=== PATIENT | male | born 2000 | race Two or more races ===

== ENCOUNTER 2021-12-28 13:10 | Inpatient (IN) | payer OTHER ==
[~2021-12-28] VITALS: Ht 177.8 cm; Wt 131.4 kg
[2021-12-28 14:46] LABS: Basophils # (auto) 0 10 ^3/uL (0-0.2); Basophils % (auto) 0.1 % (0.0-2.0); Eosinophils # (auto) 0 10 ^3/uL (0-0.8); Eosinophils % (auto) 0.1 % (0.0-7.0); Hemoglobin 13.7 g/dL (13.5-17.5); Lymphocytes # (auto) 1.4 10 ^3/uL (0.4-5.4); Lymphocytes % (auto) 6.5 % (10.0-50.0); Mean Corpuscular Hemoglobin 27.8 pg (28.0-32.0); Mean Corpuscular Hgb Conc. 33.4 g/dL (32.0-36.0); Mean Corpuscular Volume 83.3 fL (80.0-100.0); Monocytes # (auto) 2.1 10 ^3/uL (0-1.3); Monocytes % (auto) 9.6 % (0.0-12.0); Neutrophils # (auto) 18.3 10 ^3/uL (1.6-8.6); Neutrophils % (auto) 83.7 % (37.0-80.0); Red Blood Cells 4.92 10^6/uL (4.5-5.90); Red Cell Distribution Width 13.1 % (11.8-14.3); White Blood Cell 21.8 10^3/uL (4.4-10.8)
[2021-12-28 14:57] LABS: Albumin 3.8 g/dL (3.4-5.0); Calcium 8.6 mg/dL (8.5-10.1); Potassium 3.7 mmol/L (3.5-5.1)
[2021-12-28 15:02] LABS: BUN/Creatinine Ratio 9.9; Bilirubin, Total 0.7 mg/dL (0.2-1.0); Total Protein 7.6 g/dL (6.4-8.2)
[2021-12-28] MEDS ORDERED: SODIUM CHLORIDE 0.9% 1,000 ML IV ONE ×2 (17:00)
[2021-12-28] MEDS ORDERED: metroNIDAZOLE 500MG/100ML 100 ML IV ONE (17:00)
[2021-12-28] MEDS ORDERED: cefTRIAXone 1GM/50ML D5W 50 ML IV ONE (17:00)
[2021-12-28 17:21] LABS: Urine Bacteria NONE SEEN /hpf (None Seen); Urine Blood 1+ /uL (Negative); Urine Mucus FEW (None Seen); Urine Specific Gravity 1.026 (1.001-1.035); Urine WBC 1 /hpf (0 - 3)
[2021-12-28] MEDS ORDERED: ONDANSETRON HCL 4 MG/2 ML VIAL IV PRN (17:30)
[2021-12-28] MEDS ORDERED: MORPHINE SULFATE INJ 2 MG/ml SYRG IV PRN (17:30)
[2021-12-28 17:32] LABS: Alcohol, Urine < 3.0 mg/dL (0-10); Amphetamine Screen, Urine NEGATIVE (NEGATIVE); Barbiturate Scree,Urine NEGATIVE (NEGATIVE); Benzodiazephine Screen, Urine NEGATIVE (NEGATIVE); Cannabinoid Screen, Urine NEGATIVE (NEGATIVE); Cocaine Screen, Urine NEGATIVE (NEGATIVE); Opiate Scree,Urine NEGATIVE (NEGATIVE); Phencyclidine Screen, Urine NEGATIVE (NEGATIVE)
[2021-12-28] MEDS ORDERED: ACETAMINOPHEN 325 MG TAB PO ONE (19:45)
[2021-12-28] MEDS: metroNIDAZOLE 500MG/100ML 100 ML IV SCH (19:52)
[2021-12-28 22:25] VITALS: BP 115/67
[2021-12-29] MEDS: metroNIDAZOLE 500MG/100ML 100 ML IV SCH ×3 (01:29→20:42)
[2021-12-29] MEDS: SODIUM CHLORIDE 0.9% 1,000 ML IV SCH ×5 (01:50→20:43)
[2021-12-29] MEDS ORDERED: ACETAMINOPHEN 325 MG TAB PO ONE (02:45)
[2021-12-29 05:11] VITALS: BP 114/65
[2021-12-29 06:04] LABS: Basophils # (auto) 0.1 10 ^3/uL (0-0.2); Basophils % (auto) 0.3 % (0.0-2.0); Eosinophils # (auto) 0 10 ^3/uL (0-0.8); Eosinophils % (auto) 0.1 % (0.0-7.0); Hematocrit 38.3 % (41.0-53.0); Hemoglobin 12.9 g/dL (13.5-17.5); Lymphocytes # (auto) 2.1 10 ^3/uL (0.4-5.4); Lymphocytes % (auto) 11.6 % (10.0-50.0); Mean Corpuscular Hemoglobin 29.3 pg (28.0-32.0); Mean Corpuscular Hgb Conc. 33.7 g/dL (32.0-36.0); Mean Corpuscular Volume 87.1 fL (80.0-100.0); Monocytes # (auto) 2.2 10 ^3/uL (0-1.3); Monocytes % (auto) 12.1 % (0.0-12.0); Neutrophils # (auto) 13.7 10 ^3/uL (1.6-8.6); Neutrophils % (auto) 75.9 % (37.0-80.0); Nucleated Red Blood Cells % 0.1 %; Red Cell Distribution Width 13.5 % (11.8-14.3)
[2021-12-29 08:31] LABS: Potassium 3.7 mmol/L (3.5-5.1)
[2021-12-29 08:41] LABS: Albumin 3.3 g/dL (3.4-5.0); BUN/Creatinine Ratio 10.7; Bilirubin, Total 0.7 mg/dL (0.2-1.0); Calcium 8.1 mg/dL (8.5-10.1); Total Protein 6.7 g/dL (6.4-8.2)
[2021-12-29 09:00] VITALS: BP 131/78
[2021-12-29] MEDS: ENOXAPARIN SOD 40 MG/0.4 ML SYRINGE SC SCH (09:30)
[2021-12-29] MEDS ORDERED: cefTRIAXone 1GM/50ML D5W 50 ML IV ONE (10:45)
[2021-12-29] MEDS ORDERED: ACETAMINOPHEN 325 MG TAB PO PRN (11:15)
[2021-12-29 13:00] VITALS: BP 126/83
[2021-12-29 17:00] VITALS: BP 137/90
[2021-12-29 22:00] VITALS: BP 131/81
[2021-12-30] MEDS: metroNIDAZOLE 500MG/100ML 100 ML IV SCH ×2 (02:06→09:45)
[2021-12-30 05:00] VITALS: BP 129/75
[2021-12-30 05:46] LABS: Basophils # (auto) 0 10 ^3/uL (0-0.2); Basophils % (auto) 0.1 % (0.0-2.0); Eosinophils # (auto) 0 10 ^3/uL (0-0.8); Eosinophils % (auto) 0.1 % (0.0-7.0); Lymphocytes # (auto) 1.2 10 ^3/uL (0.4-5.4); Lymphocytes % (auto) 6.6 % (10.0-50.0); Mean Corpuscular Hemoglobin 28.9 pg (28.0-32.0); Mean Corpuscular Hgb Conc. 35.1 g/dL (32.0-36.0); Mean Corpuscular Volume 82.3 fL (80.0-100.0); Monocytes # (auto) 1.6 10 ^3/uL (0-1.3); Monocytes % (auto) 8.5 % (0.0-12.0); Neutrophils # (auto) 15.8 10 ^3/uL (1.6-8.6); Neutrophils % (auto) 84.7 % (37.0-80.0); Red Cell Distribution Width 12.9 % (11.8-14.3); White Blood Cell 18.6 10^3/uL (4.4-10.8)
[2021-12-30 09:00] VITALS: BP 130/71
[2021-12-30] MEDS ORDERED: cefTRIAXone 1GM/50ML D5W 50 ML IV SCH (09:00)
[2021-12-30] MEDS: ENOXAPARIN SOD 40 MG/0.4 ML SYRINGE SC SCH (09:45)
[2021-12-30] MEDS: SODIUM CHLORIDE 0.9% 1,000 ML IV SCH (11:38)
== END 2021-12-30 14:14 | disposition left against medical advice (07) | DRG 720 ==
LOC: ER 13:10 → OVERFLOW 17:17 → WEST WING 20:50
PROVIDERS: ADMIT Internal Medicine; ATTEND Family Medicine
DX: A41.9 Sepsis, unspecified organism (principal); A05.9 Bacterial foodborne intoxication, unspecified; E86.0 Dehydration; K52.9 Noninfective gastroenteritis and colitis, unspecified; Z53.29 Procedure and treatment not carried out because of patient's decision for other reasons; Z20.822 Contact with and (suspected) exposure to COVID-19
CPT/HCPCS: 36415; 74176; 76705; 80053; 80307; 81001; 83605; 85025; 87040; 96365; 96367; 99291; G0378; J0696; J3490